=== PATIENT | female | born 1965 | race American Indian/Alaskan Native ===

== ENCOUNTER 2018-01-08 12:17 | Outpatient (CLI) | payer BC ==
--- NOTE | 2018-01-08 14:06 | Cat Scan Report ---
CT scan of abdomen without and with IV contrast: Compared to 07/12/15. History: Pancreatic cyst. Findings: Normal liver spleen and gallbladder. 2 small hypodensities, probably cysts are identified in the junction of the head and body of the pancreas measuring approximately 4 mm in diameter each. Appear to be either same size or slightly smaller compared to previous study. No additional hypodensities are identified. Peripancreatic tissue appears normal. Normal adrenals and kidneys. Gaseous colon with large volume stool in colon. No bowel distention. Impression: 2 small hypodensities in the pancreas at the junction of the head and the body. These appear to be slightly smaller almost the same size compared to the previous study. No additional hypodensities are noted.
== END 2018-01-08 12:18 | disposition home or self-care (01) ==
LOC: CT 12:17
PROVIDERS: ATTEND Internal Medicine Gastroenterology
DX: K86.2 Cyst of pancreas (principal)
CPT/HCPCS: 74170; Q9967